=== PATIENT | female | born 1975 | race Caucasian/White ===

== ENCOUNTER 2019-03-01 08:19 | Day surgery (SDC) | payer BC ==
[~2019-03-01] VITALS: Ht 162.6 cm; Wt 64.0 kg
[2019-03-01] VITALS (12 sets, daily range): BP systolic 98–116; BP diastolic 59–82; PULSE 58–80; RESP 13–21; Ht 162.6 cm; Wt 64.0 kg
[~2019-03-01 08:19] MED LIST: ACETAMINOPHEN 500 MG TAB PO ONE; PHENYLephrine (100 MCG/ML) 10ML SYG ONE
[2019-03-01] MEDS ORDERED: LEVO88TA PO (09:03)
[2019-03-01] MEDS ORDERED: FENTAnyl 50 MCG/ML VIAL IV PRN ×2 (11:00)
[2019-03-01] MEDS ORDERED: MEPERIDINE 25 MG INJ IV PRN (11:00)
[2019-03-01] MEDS ORDERED: ONDANSETRON 4 MG INJ IV PRN (11:00)
[2019-03-01] MEDS ORDERED: DIPHENHYDRAMINE 50 MG INJ IV PRN (11:00)
[2019-03-01] MEDS ORDERED: ALBUTEROL 0.083% (NEB) 2.5 MG/3 ML AMP HHN PRN (11:00)
[2019-03-01] MEDS ORDERED: LABETALOL HCL 20MG INJ IV PRN (11:00)
[2019-03-01] MEDS ORDERED: OXYCODONE/ACETAMINOPHEN (5/325) TAB PO PRN ×2 (11:00)
[2019-03-01] MEDS ORDERED: HYDROmorphONE 1 MG/5 ML IV SYRINGE IV PRN ×3 (11:00)
[2019-03-01] MEDS ORDERED: morphine 2 MG INJ IV PRN ×2 (11:00)
[2019-03-01] MEDS ORDERED: BUPIVACAINE 0.25% (MPF) 30 ML INJ ONE (11:05)
[2019-03-01] MEDS ORDERED: LIDOCAINE 1% (MPF) 30 ML INJ ONE (11:06)
--- NOTE | 2019-03-01 11:19 | PREAC ---
Date/Time of Note Date/Time of Note DATE: 03/01/19 TIME: 11:17 Anesthesia Eval and Record Evaluation Time Pre-Procedure Interview DATE: 03/01/19 TIME: 11:17 Age 43 Sex female NPO: 8 hrs Preoperative diagnosis R index finger mass Planned procedure R index finger mass removal Past Medical History Past Medical History: Includes (chronic back pain, spinal stenosis) Endo: Hypothyroid Surgery & Anesthesia Issues No known issue Meds Anticoagulation: No Beta Bentley within 24 hr: No Reason Beta Bentley not given: Pt. not on B-Bentley Reported Medications Levothyroxine Sodium* (Synthroid*) 88 Mcg Tablet, 88 MCG PO BEFORE BREAKFAST, #30 TAB 03/01/19 Current Medications Morphine Sulfate (morphine) 2 mg PACU PRN IV PAIN LEVEL 1-3; Start 03/01/19 at 11:00; Stop 03/01/19 at 20:00 Morphine Sulfate (morphine) 4 mg PACU PRN IV PAIN LEVEL 4-6; Start 03/01/19 at 11:00; Stop 03/01/19 at 20:00 Hydromorphone HCl (Dilaudid) 0.2 mg PACU PRN IV MILD PAIN 1-3; Start 03/01/19 at 11:00; Stop 03/01/19 at 20:00 Hydromorphone HCl (Dilaudid) 0.4 mg PACU PRN IV MOD PAIN 4-6; Start 03/01/19 at 11:00; Stop 03/01/19 at 20:00 Hydromorphone HCl (Dilaudid) 0.6 mg PACU PRN IV SEVERE PAIN 7-10; Start 03/01/19 at 11:00; Stop 03/01/19 at 20:00 Fentanyl (Sublimaze) 25 mcg PACU ORDER PRN IV MILD PAIN 1-3; Start 03/01/19 at 11:00; Stop 03/01/19 at 20:00 Fentanyl (Sublimaze) 50 mcg PACU ORDER PRN IV MOD PAIN 4-6; Start 03/01/19 at 11:00; Stop 03/01/19 at 20:00 Oxycodone/ Acetaminophen (Percocet (5/ 325)) 1 tab PACU ORDER PRN PO .PAIN 1-5; Start 03/01/19 at 11:00; Stop 03/01/19 at 20:00 Oxycodone/ Acetaminophen (Percocet (5/ 325)) 2 tab PACU ORDER PRN PO .PAIN 6-10; Start 03/01/19 at 11:00; Stop 03/01/19 at 20:00 Ondansetron HCl (Zofran Inj) 4 mg PACU ORDER PRN IV NAUSEA/VOMITING; Start 03/01/19 at 11:00; Stop 03/01/19 at 20:00 Labetalol HCl (Labetalol) 5 mg PACU ORDER PRN IV HIGH BLOOD PRESSURE; Start 03/01/19 at 11:00; Stop 03/01/19 at 20:00 Albuterol (Proventil 0.083% (Neb)) 2.5 mg PACU ORDER PRN HHN .WHEEZING; Start 03/01/19 at 11:00; Stop 03/01/19 at 20:00 Meperidine HCl (Demerol) 25 mg PACU ORDER PRN IV .RIGORS; Start 03/01/19 at 11:00; Stop 03/01/19 at 20:00 Diphenhydramine HCl (Benadryl) 25 mg PACU ORDER PRN IV .PRURITUS; Start 03/01/19 at 11:00; Stop 03/01/19 at 20:00 Meds reviewed: Yes Allergies Coded Allergies: No Known Allergy (Unverified , 03/01/19) Allergies Reviewed: Yes Labs/Studies Labs Reviewed: Reviewed by anesthesiologist test: Negative Pre-procedure Exam Last vitals Vital Signs Date Temp Pulse Resp B/P (MAP) Pulse Ox O2 O2 Flow FiO2 Time Delivery Rate 03/01/19 98.0 66 16 99/61 (74) 99 Room Air 10:29 Airway: Adequate mouth opening, Adequate thyromental dist Mallampati: Mallampati II Teeth: Abnormal (dentures removed; missing teeth) Lung: Normal Heart: Normal ASA Physical Status ASA physical status: 2 Emergency: None Planned Anesthetic General/MAC: MAC Pre-operative Attestations Prior to commencing anesthesia and surgery, the patient was re-evaluated, there was verification of: *The patient's identity *The results of appropriate recent lab work and preoperative vital signs *The above evaluation not changing prior to induction *Anesthetic plan, risk benefits, alternative and complications discussed with patient/family; questions answered; patient/family understands, accepts and wishes to proceed. REGIS SANCHEZ March 01, 2019 11:19
--- NOTE | 2019-03-01 11:30 | HPN ---
Date/Time of Note Date/Time of Note DATE: 03/01/19 TIME: 11:30 Interval H&P Admission Note Pt. seen H&P reviewed: No system changes DM RICO MD March 01, 2019 11:30
[2019-03-01] MEDS ORDERED: MIDAZOLAM 1 MG/ML 2 ML INJ ONE (11:41)
[2019-03-01] MEDS ORDERED: FENTAnyl 50 MCG/ML VIAL ONE (11:41)
[2019-03-01] MEDS ORDERED: PROPOFOL 40 ML ONE (12:18)
[2019-03-01] MEDS ORDERED: LIDOCAINE 2% (SDV) 5 ML INJ ONE (12:18)
[2019-03-01] MEDS ORDERED: CEFAZOLIN 1 GM INJ ONE (12:18)
[2019-03-01] MEDS ORDERED: BACITRACIN/POLYMYXIN 28.35 GM OINT TOP ONE (12:18)
--- NOTE | 2019-03-01 12:33 | OPR ---
Date/Time of Note Date/Time of Note DATE: 03/01/19 TIME: 12:28 Operative Report Preoperative Diagnosis Right index finger mass Postoperative Diagnosis Right index finger mass Operation/Procedure Performed Right index finger mass excision Surgeon see signature line Dowel Maker None Anesthesia Type: MAC Anesthesiologist: REGIS SANCHEZ Estimated Blood Loss: minimal Transfusion none Specimen Finger mass Grafts/Implants none Tubes/Drains None Complications none Pt Condition Post Procedure: stable Disposition: PACU Indications Monika is a 43 year old female who has a right index finger mass since May 2018. It has grown larger in size and she wants it removed. She understands risks of surgery, including but not limited to infection, pain, bleeding, neurovascular injury, recurrence, and stiffness, and other anesthesia related risks. She elects to proceed. Procedure Description Patient was identified in preoperative holding area. Upper extremity was marked. She is brought back to operating room. She is placed supine in light IV sedation was administered. Nonsterile tourniquets applied to the arm. 2 g of Vyvanse was administered. A timeout was performed indicating correct patient site and procedure. Local injection combination of 0.25% Marcaine and 1% lidocaine was injected into the right index finger for a total of 5 cc. The right arm were then prepped and draped in usual sterile fashion. Repeat timeout was performed Arm was exsanguinated with Esmarch and tourniquet was elevated to 250 mm Hg. A slightly oblique incision was made over the mass which was at the base of the proximal phalanx. Skin was incised sharply. Skin flaps are elevated. I encountered a relatively large appearing cystic structure. To get better visualization of the mass I did extend the incision in Mihaela fashion distally. The skin flaps were elevated and retracted. The mass was then dissected circumferentially. It was noted to be coming from the A2 conor was transected at the base along with the stalk of the cyst. This is sent off to pathology. It measured approximately 1 x 1 cm. The A2 conor was left preserved and the flexor tendons were noted to be intact. The digital neurovascular bundles were protected throughout the case. The wound was irrigated. Tourniquet was released. The skin was closed with interrupted 5-0 nylon horizontal mattress suture. Adaptic 4 x 4 gauze Murray and Coban was applied on the finger. There is brisk capillary refill and all sponge counts were correct and the case. She was awoken from anesthesia and taken to PACU in stable condition. DM RICO MD March 01, 2019 12:33
--- NOTE | 2019-03-02 20:29 | PAC ---
Date/Time of Note Date/Time of Note DATE: 03/02/19 TIME: 20:29 Post-Anesthesia Notes Post-Anesthesia Note Last documented vital signs Vital Signs Date Temp Pulse Resp B/P (MAP) Pulse Ox O2 O2 Flow FiO2 Time Delivery Rate 03/01/19 97.2 58 16 107/76 100 Room Air 13:18 (86) Activity: WNL Respiratory function: WNL Cardiovascular function: WNL Mental status: Baseline Pain reasonably controlled: Yes Hydration appropriate: Yes Nausea/Vomiting absent: Yes REGIS SANCHEZ March 02, 2019 20:29
== END 2019-03-01 14:06 | disposition home or self-care (01) ==
LOC: SDS 08:19 → EDSEX 08:19 → SDS 14:06
PROVIDERS: ATTEND Orthopaedic Surgery
DX: M67.441 Ganglion, right hand (principal); E03.9 Hypothyroidism, unspecified
CPT/HCPCS: 26160; 88307; J0690; J2250; J2370; J3010; Z7512; Z7610